=== PATIENT | female | born 1965 | race African-American/Black ===

== ENCOUNTER 2017-04-20 07:22 | Day surgery (SDC) | payer OTHER ==
[~2017-04-20] VITALS: Ht 170.2 cm; Wt 83.9 kg
[2017-04-20 08:05] VITALS: BP 143/96
[2017-04-20 15:42] VITALS: BP 148/93
== END 2017-04-20 14:50 | disposition home or self-care (01) ==
LOC: GI 07:22 → OR 12:30 → GI 14:50
PROVIDERS: Internal Medicine
PROC: 0DB58ZX Excision of Esophagus, Via Natural or Artificial Opening Endoscopic, Diagnostic (ICD-10-PCS; principal; 2017-04-20 11:30)
PROC: 0DB68ZX Excision of Stomach, Via Natural or Artificial Opening Endoscopic, Diagnostic (ICD-10-PCS; 2017-04-20 11:30)
DX: K20.8 Other esophagitis (principal); K44.9 Diaphragmatic hernia without obstruction or gangrene; K29.70 Gastritis, unspecified, without bleeding; E11.9 Type 2 diabetes mellitus without complications; I10 Essential (primary) hypertension; Z68.28 Body mass index [BMI] 28.0-28.9, adult
CPT/HCPCS: 43235; J1200; J1610; J2250; J2310; J3010; J3360; J3490; Q0092

== ENCOUNTER 2018-01-25 01:22 | Emergency (ER) | payer OTHER ==
[2018-01-25 01:29] VITALS: Ht 170.2 cm
[2018-01-25 03:58] VITALS: BP 189/103
== END 2018-01-25 03:58 | disposition home or self-care (01) ==
LOC: ED 01:22
DX: H01.003 Unspecified blepharitis right eye, unspecified eyelid (principal); I10 Essential (primary) hypertension; Z88.8 Allergy status to other drugs, medicaments and biological substances; Z88.6 Allergy status to analgesic agent